=== PATIENT | male | born 1995 | race Caucasian/White ===

== ENCOUNTER 2023-03-19 16:30 | Emergency (ER) | payer MEDICAID, SELFPAY ==
[2023-03-19 17:25] LABS: VBG HCO3 17 mmol/L (22-26); VBG pCO2 128 mmHg; VBG pH 6.73 (7.32-7.43); VBG pO2 36 mmHg
[2023-03-19 17:26] LABS: Venous Blood Gas Refer to POC result
[2023-03-19 17:45] LABS: Anion Gap 29 (12-20); Blood Urea Nitrogen 20 mg/dL (9-16); Calcium 10.8 mg/dL (8.4-10.2); Carbon Dioxide 22 mmol/L (22-29); Chloride 108 mmol/L (96-108); Estimated Glomerular Filt Rate 33; Glucose Random 168 mg/dL (60-115); Potassium 3.4 mmol/L (3.3-5.1); Sodium 156 mmol/L (135-145)
--- NOTE | 2023-03-19 17:51 | PC.NURSE ---
NEDS called by Nae SCHWARTZ, Family at bedside with tech pending ME acceptance.
--- NOTE | 2023-03-19 18:01 | PC.NURSE ---
1610 -Pt brought in [facility] for witnessed arrest, family at home and reported pt had a ? seizure. pt lost pulses while in EMS, CPR initiated with mookie, 3 Epi given by EMS via IO in L leg. 1630 - arrival to [facility] room 5, CPR in progress. pt with no visible trauma to the body, remains on the mookie. ROSC obtained after multiple rounds of EPI, barcarb, calcium, Amiodarone, and narcan. TIme of called 1714. NEDS called 1740
--- NOTE | 2023-03-19 18:02 | PC.NURSE ---
[facility]
--- NOTE | 2023-03-19 18:04 | PC.NURSE ---
Nora Salas (mother) [phone] Father [phone] NO home known at this time
--- NOTE | 2023-03-19 18:07 | MHC.EDTECH ---
medical examiners office was called at [phone] awaiting ME approval or Decline.
--- NOTE | 2023-03-19 21:46 | ED_ITS ---
HPI - CPR General Chief Complaint: Cardiac Arrest/CPR Stated Complaint: cardiac arrest Time Seen by Provider: 03/19/23 17:42 Source: EMS Mode of arrival: EMS Limitations: other History of Present Illness HPI narrative: Patient came to the emergency room via ambulance in cardiac arrest. EMS reports that the patient's mother called 911 after the patient was found at home having seizure-like movements and copiously drooling. When EMS arrived at the patient's house, patient was found to be in asystole. And I- gel was placed in the airway, ventilated, CPR started. When patient arrived to the emergency room, patient was still in asystole. Patient was intubated upon arrival. It was noted the patient had a very strong odor of marijuana. On arrival, patient was noted to be very cold to touch, seems that at home, the family dumped a bucket of cold water on him to attempt to waking him up Related Data Allergies Allergy/AdvReac Type Severity Reaction Status Date / Time SEASONAL ALLERGIES Allergy Unknown UNKNOWN Uncoded 07/28/20 16:29 Review of Systems Review of Systems: Yes Unobtainable due to mental condition PMFSH Past Medical History Medical History Marijuana use Social History Social History Advance Directives: No Advance Directives Information Provided: No Physical Exam Const: Other: Appearance: Unresponsive Eyes: Pupils dilated, fixed, nonreactive to light ENT: I gel in place, large amount of frothy bloody tinged sputum present in the oropharynx Neck: Normal inspection. Neck supple. No lymph nodes noted. No crepitus CVS: CPR /Iván in progress Respiratory: Being ventilated Abdomen: Distended Skin: Cold, diffuse grayish discoloration Extremities: No lower extremity edema. No Lacerations. No Rash Neuro: Unresponsive Psych: Unresponsive Course Course Course Narrative: -when patient arrived to the emergency room, the I gel was switched to an ET tube. Patient continued to produce a large amount of blood tinged color sputum and expressed through the ET tube. -patient was in VFib twice during the resuscitation efforts, patient was shocked twice. We got Jenera twice. However, patient kept going into VFib and eventually into asystole. -time of was called at 17 14 -according to the patient's mother, the patient did not have any medical history including seizures. However, the patient's mother mentioned that he was over the patient smoked marijuana and that at some point he was using ?they kind of pills that are killing everyone but she is not sure if the patient was still actively using -given the patient's presentation and history, it is likely that the patient secondary to an overdose -the patient was accepted by the adjunct faculty for medical terminology, case [id number] Medical Decision Making Lab Data 03/19/23 17:05 Labs: Lab Results 03/19/23 03/19/23 Range/Units 17:05 17:15 VBG pH 6.73 L* (7.32-7.43) VBG pCO2 128 mmHg VBG pO2 36 mmHg VBG HCO3 17 L (22-26) mmol/L VBG O2 Saturation 40.0 % VBG Base Excess -21.0 mmol/L Sodium 156 H (135-145) mmol/L Potassium 3.4 (3.3-5.1) mmol/L Chloride 108 (96-108) mmol/L Carbon Dioxide 22 (22-29) mmol/L Anion Gap 29 H (12-20) BUN 20 H (9-16) mg/dL Creatinine 2.36 H (0.5-1.4) mg/dL Estim Creat Clear Calc TNP Estimated GFR 33 Random Glucose 168 H (60-115) mg/dL Calcium 10.8 H (8.4-10.2) mg/dL Critical Care Time Critical Care Time Critical Care Time: Yes Total Critical Care Time: 75 Attestation: I have personally provided critical care time. Time includes review of lab data, radiology results, discussion with consultants, and monitoring for potential decompensation. Intervention performed as documented. Discharge Plan Discharge Clinical Impression: Cardiac arrest Patient Disposition:
== END 2023-03-19 23:05 | disposition expired ==
PROVIDERS: Emergency Provider Emergency Medicine
DX: I46.9 Cardiac arrest, cause unspecified (principal); F12.90 Cannabis use, unspecified, uncomplicated
CPT/HCPCS: 36415; 80048; 82803; 92950; 96374; 96375; 99281; 99285; J0171; J0282